=== PATIENT | male | born 1945 | race Caucasian/White ===

== ENCOUNTER 2016-08-19 16:02 | Outpatient (CLI) | payer MEDICARE, OTHER | END 2016-08-19 23:59 | DX: I48.0 Paroxysmal atrial fibrillation (principal); I49.5 Sick sinus syndrome; I10 Essential (primary) hypertension; E78.00 Pure hypercholesterolemia, unspecified; Z95.0 Presence of cardiac pacemaker ==

== ENCOUNTER 2017-01-12 08:22 | Outpatient (CLI) | payer MEDICARE, OTHER ==
[2017-01-12 11:22] LABS: CALCIUM 9.8 mg/dL (8.5-10.3); CREATININE 0.9 mg/dL (0.6-1.2); POTASSIUM 3.9 mmol/L (3.5-5.0)
== END 2017-01-12 08:23 | disposition home or self-care (01) ==
LOC: LAB.F 08:22
PROVIDERS: ATTEND Internal Medicine Cardiovascular Disease
DX: R00.2 Palpitations (principal); Z95.0 Presence of cardiac pacemaker; I10 Essential (primary) hypertension
CPT/HCPCS: 36415; 80048

== ENCOUNTER 2017-02-02 15:29 | Outpatient (CLI) | payer MEDICARE, OTHER ==
--- NOTE | 2017-02-03 09:42 | XRAY Report ---
THREE-VIEW LEFT FOOT: 02/02/2017 CLINICAL INDICATION: Enlargement of 1st metatarsophalangeal joint. FINDINGS: AP, lateral, oblique views of the left foot demonstrate previous joint replacement at the 1st metatarsophalangeal joint. There is no evidence of fracture or evident hardware complication. N o radiopaque foreign body is seen in the soft tissues. IMPRESSION: STATUS POST FIRST METATARSOPHALANGEAL ARTHROPLASTY. NO EVIDENT FRACTURE OR HARDWARE COM PLICATION. JOB #: [id number] EXT JOB #:[id number]
== END 2017-02-02 15:30 | disposition home or self-care (01) ==
LOC: DI 15:29
PROVIDERS: ATTEND Podiatrist
DX: M25.872 Other specified joint disorders, left ankle and foot (principal); Z96.698 Presence of other orthopedic joint implants

== ENCOUNTER 2017-03-22 19:43 | Emergency (ER) | payer MEDICARE, OTHER ==
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
[2017-03-22] MEDS ORDERED: HYDROcod/ACETAM 5/325 MG TABLET PO STA (20:17)
[2017-03-22] MEDS ORDERED: HYDROcod/ACETAM 5/325 MG TABLET ONE (20:22)
[2017-03-22] MEDS ORDERED: oxyCODONE/ACET 5/325 Prepack 4 PO STA (21:06)
[2017-03-22] MEDS ORDERED: oxyCODONE/ACET 5/325 Prepack 4 PO ONE (21:13)
--- NOTE | 2017-03-22 21:15 | CT Preliminary Report ---
Exam: CT Chest W/O IMPRESSION: 1. Minimally displaced fractures of the left third, fourth, fifth and sixth ribs with adjacent epidur al hematomas. 2. No thoracic spine fracture or scapula fracture. 3. No focal consolidation, pleural effusion or pneumothorax. Atelectatic changes are noted in the maty g bases. [facility] SITE ID: [id number]
--- NOTE | 2017-03-22 21:18 | CT Report ---
EXAM: CT CHEST EXAM DATE: 03/22/2017 08:38 PM. CLINICAL HISTORY: Posterior L trauma, scapula, ribs. COMPARISONS: None. TECHNIQUE: Routine helical CT imaging was performed through the chest. IV contrast: None. Reconstruct ions: Coronal and sagittal. In accordance with CT protocol optimization, one or more of the following dose reduction techniques w ere utilized for this exam: automated exposure control, adjustment of mA and/or KV based on patient s ize, or use of iterative reconstructive technique. FINDINGS: Lungs/Pleura: Atelectatic changes in the lung bases posteriorly. No pleural effusion. No focal consol idation. No pneumothorax. Mediastinum: Normal. No adenopathy or masses. The heart and great vessels are normal. Bones: Minimally displaced fractures of the left third, fourth, fifth, sixth ribs posterior laterally . Adjacent epidural hematoma. Visualized Abdomen: Unremarkable. Other: None. IMPRESSION: 1. Minimally displaced fractures of the left third, fourth, fifth and sixth ribs with adjacent epidur al hematomas. 2. No thoracic spine fracture or scapula fracture. 3. No focal consolidation, pleural effusion or pneumothorax. Atelectatic changes are noted in the maty g bases. [facility] Referring Provider Line: [phone] SITE ID: [id number]
[2017-03-22 21:34] VITALS: BP 190/80
== END 2017-03-22 21:40 | disposition home or self-care (01) ==
LOC: ED 19:43
DX: S22.42XA Multiple fractures of ribs, left side, initial encounter for closed fracture (principal); V18.4XXA Pedal cycle driver injured in noncollision transport accident in traffic accident, initial encounter; Y93.55 Activity, bike riding; Y92.488 Other paved roadways as the place of occurrence of the external cause; R03.0 Elevated blood-pressure reading, without diagnosis of hypertension; E78.00 Pure hypercholesterolemia, unspecified; Z79.01 Long term (current) use of anticoagulants; M19.90 Unspecified osteoarthritis, unspecified site; Z95.0 Presence of cardiac pacemaker; Z86.010 Personal history of colon polyps; Z87.11 Personal history of peptic ulcer disease; Z87.891 Personal history of nicotine dependence
CPT/HCPCS: 71250; 99283; 99284; A9270

== ENCOUNTER 2017-06-08 13:30 | Outpatient (CLI) | payer MEDICARE, OTHER | END 2017-06-08 13:31 | disposition home or self-care (01) | LOC: LAB.F 13:30 | PROVIDERS: ATTEND Specialist | DX: I48.91 Unspecified atrial fibrillation (principal) | CPT/HCPCS: 85610 ==

== ENCOUNTER 2017-07-05 14:55 | Outpatient (CLI) | payer MEDICARE, OTHER ==
[2017-07-06 10:44] LABS: CALCIUM 9.9 mg/dL (8.5-10.3); POTASSIUM 4.8 mmol/L (3.5-5.0)
== END 2017-07-05 14:56 | disposition home or self-care (01) ==
LOC: LAB.F 14:55
PROVIDERS: ATTEND Internal Medicine Cardiovascular Disease
DX: I48.0 Paroxysmal atrial fibrillation (principal)
CPT/HCPCS: 36415; 80048

== ENCOUNTER 2017-09-23 15:42 | Outpatient (CLI) | payer MEDICARE, OTHER ==
--- NOTE | 2017-09-24 09:39 | XRAY Report ---
EXAM: LEFT THIRD DIGIT RADIOGRAPHY EXAM DATE: 09/23/2017 04:03 PM. CLINICAL HISTORY: SWOLLEN FINGER. COMPARISON: Previous exam of 06/02/2010. TECHNIQUE: 3 views. FINDINGS: Bones: Normal. No fracture or bone lesion. Joints: Interval progression of mild osteoarthritic changes. No subluxations. Soft Tissues: Normal. No soft tissue swelling. IMPRESSION: Mild osteoarthritis without acute fracture. [facility] Referring Provider Line: [phone] SITE ID: [id number]
== END 2017-09-23 15:43 | disposition home or self-care (01) ==
LOC: DI 15:42
PROVIDERS: ATTEND Specialist
DX: M19.042 Primary osteoarthritis, left hand (principal)
CPT/HCPCS: 73140

== ENCOUNTER 2018-02-14 14:30 | Outpatient (CLI) | payer MEDICARE, OTHER ==
--- NOTE | 2018-02-14 15:09 | XRAY Report ---
Procedure Date: 02/14/2018 Accession Number: [id number] / [id number] Procedure: XR - Foot 3 View RT CPT Code: FULL RESULT: EXAM: Foot 3 View RT DATE: 02/14/2018 2:46 PM CLINICAL HISTORY: METATARSALGIA, RIGHT FOOT COMPARISON: None. TECHNIQUE: 3 views. FINDINGS: Bones: Normal. No fractures or bone lesions. Joints: Normal. No subluxations. Soft Tissues: Normal. No soft tissue swelling. IMPRESSION: Normal foot radiography. [facility]
== END 2018-02-14 14:31 | disposition home or self-care (01) ==
LOC: DI 14:30
PROVIDERS: ATTEND Specialist
DX: M77.41 Metatarsalgia, right foot (principal)

== ENCOUNTER 2018-02-15 09:14 | Outpatient (CLI) | payer MEDICARE, OTHER ==
[2018-02-15 17:44] LABS: BASOPHILS # (AUTO) 0.1 10^3/uL (0.0-0.1); BASOPHILS % (AUTO) 0.8 %; EOSINOPHILS # (AUTO) 0.2 10^3/uL (0.0-0.7); EOSINOPHILS % (AUTO) 2.4 %; HGB - HEMOGLOBIN 14.8 g/dL (14.0-18.0); LYMPHOCYTES % (AUTO) 26.9 %; MEAN CORPUSCULAR HEMOGLOBIN 31.7 pg (27.0-31.0); MEAN CORPUSCULAR HGB CONC 33.4 g/dL (32.0-36.0); MEAN CORPUSCULAR VOLUME 94.8 fL (80.0-94.0); MEAN PLATELET VOLUME 9.6 fL (7.4-11.4); MONOCYTES # (AUTO) 0.6 10^3/uL (0.0-1.0); MONOCYTES % (AUTO) 8.2 %; NEUTROPHILS # (AUTO) 4.6 10^3/uL (1.5-6.6); NEUTROPHILS % (AUTO) 61.7 %; PLT - PLATELET COUNT 249 10^3/uL (130-450); RED BLOOD COUNT 4.68 10^6/uL (4.70-6.10); RED CELL DISTRIBUTION WIDTH 13.5 % (12.0-15.0); WHITE BLOOD COUNT 7.5 x10^3/uL (4.8-10.8)
[2018-02-15 18:24] LABS: ALBUMIN 4.2 g/dL (3.2-5.5); ALBUMIN/GLOBULIN RATIO 1.4 (1.0-2.2); ALKALINE PHOSPHATASE 45 IU/L (42-121); ALT ALANINE AMINOTRANSFERASE 11 IU/L (10-60); AST ASPARTATE AMINOTRANSFERASE 17 IU/L (10-42); BILIRUBIN,TOTAL 0.7 mg/dL (0.2-1.0); BUN - BLOOD UREA NITROGEN 15 mg/dL (6-20); CALCIUM 9.4 mg/dL (8.5-10.3); CARBON DIOXIDE - CO2 24 mmol/L (21-32); CHLORIDE 105 mmol/L (101-111); CHOL/HDL RATIO 6.8 (<5.0); CHOLESTEROL 230 mg/dL; CREATININE 0.8 mg/dL (0.6-1.2); GFR - MDRD 96 (>89); GLUCOSE 112 mg/dL (70-100); HDL CHOLESTEROL 34 mg/dL; LDL CHOLESTEROL,CALCULATED 170 mg/dL; SODIUM 136 mmol/L (135-145); TOTAL PROTEIN 7.2 g/dL (6.7-8.2); VLDL CHOLESTEROL 26 mg/dL
== END 2018-02-15 09:15 | disposition home or self-care (01) ==
LOC: LAB.F 09:14
PROVIDERS: ATTEND Specialist
DX: E78.00 Pure hypercholesterolemia, unspecified (principal); I48.91 Unspecified atrial fibrillation
CPT/HCPCS: 36415; 80053; 80061; 83721; 84153; 85025

== ENCOUNTER 2018-03-21 20:51 | Outpatient (CLI) | payer MEDICARE, OTHER ==
--- NOTE | 2018-03-21 22:13 | Ultrasound Report ---
Reason: R LEG PAIN Procedure Date: 03/21/2018 Accession Number: [id number] / [id number] Procedure: US - Duplex Ext Veins Right CPT Code: FULL RESULT: EXAM: RIGHT LOWER EXTREMITY VENOUS ULTRASOUND EXAM DATE: 03/21/2018 09:28 PM. CLINICAL HISTORY: Right leg pain. COMPARISON: None. TECHNIQUE: Real-time sonographic vascular imaging was performed by the steward/stewardess wine through the lower extremity utilizing both color-flow and Doppler spectral analysis. Multiple community engagement representative static images were saved for review. FINDINGS: Common Femoral Vein (CFV): Normal. CFV-GSV Junction: Normal. Profunda Femoral Vein (PFV): Normal. Femoral Vein (FV) Prox: Normal. Femoral Vein (FV) Mid: Normal. Femoral Vein (FV) Dist: Normal. Popliteal Vein: Normal. Posterior Tibial Veins: Normal. Peroneal Veins: Normal. Other: None. IMPRESSION: No evidence for deep venous thrombosis. [facility]
== END 2018-03-21 20:52 | disposition home or self-care (01) ==
LOC: DI 20:51
PROVIDERS: ATTEND Specialist
DX: M79.604 Pain in right leg (principal)

== ENCOUNTER 2018-07-03 10:54 | Outpatient (CLI) | payer MEDICARE, OTHER | END 2018-07-03 10:55 | disposition home or self-care (01) | LOC: LAB.F 10:54 | PROVIDERS: ATTEND Specialist | DX: I48.91 Unspecified atrial fibrillation (principal); M77.41 Metatarsalgia, right foot; E78.00 Pure hypercholesterolemia, unspecified | CPT/HCPCS: 36415; 80053; 80061; 83036; 83721; 84153; 85025 ==

== ENCOUNTER 2018-07-05 08:55 | Outpatient (CLI) | payer MEDICARE, OTHER ==
[2018-07-05 18:24] LABS: BASOPHILS # (AUTO) 0.1 10^3/uL (0.0-0.1); BASOPHILS % (AUTO) 0.8 %; EOSINOPHILS # (AUTO) 0.2 10^3/uL (0.0-0.7); EOSINOPHILS % (AUTO) 2.5 %; HGB - HEMOGLOBIN 15.3 g/dL (14.0-18.0); MEAN CORPUSCULAR HEMOGLOBIN 31.3 pg (27.0-31.0); MEAN CORPUSCULAR VOLUME 94.9 fL (80.0-94.0); MEAN PLATELET VOLUME 9.6 fL (7.4-11.4); MONOCYTES # (AUTO) 0.7 10^3/uL (0.0-1.0); MONOCYTES % (AUTO) 9.4 %; NEUTROPHILS # (AUTO) 4.3 10^3/uL (1.5-6.6); NEUTROPHILS % (AUTO) 59.3 %; PLT - PLATELET COUNT 252 10^3/uL (130-450); RED BLOOD COUNT 4.89 10^6/uL (4.70-6.10); RED CELL DISTRIBUTION WIDTH 13.6 % (12.0-15.0); WHITE BLOOD COUNT 7.3 x10^3/uL (4.8-10.8)
[2018-07-05 18:38] LABS: HEMOGLOBIN A1C 0.74 g/dL; HEMOGLOBIN A1C % 6.1 % (4.6-6.2)
[2018-07-05 18:48] LABS: ALBUMIN 4.5 g/dL (3.2-5.5); ALBUMIN/GLOBULIN RATIO 1.6 (1.0-2.2); ALKALINE PHOSPHATASE 49 IU/L (42-121); ALT ALANINE AMINOTRANSFERASE 13 IU/L (10-60); AST ASPARTATE AMINOTRANSFERASE 19 IU/L (10-42); BILIRUBIN,TOTAL 0.5 mg/dL (0.2-1.0); BUN - BLOOD UREA NITROGEN 13 mg/dL (6-20); CALCIUM 9.4 mg/dL (8.5-10.3); CARBON DIOXIDE - CO2 28 mmol/L (21-32); CHLORIDE 104 mmol/L (101-111); CHOL/HDL RATIO 6.2 (<5.0); CHOLESTEROL 235 mg/dL; CREATININE 0.8 mg/dL (0.6-1.2); GFR - MDRD 96 (>89); GLUCOSE 107 mg/dL (70-100); HDL CHOLESTEROL 38 mg/dL; LDL CHOLESTEROL,CALCULATED 163 mg/dL; LDL/HDL RATIO 4.3 (<3.6); SODIUM 137 mmol/L (135-145); TOTAL PROTEIN 7.4 g/dL (6.7-8.2); VLDL CHOLESTEROL 34 mg/dL
== END 2018-07-05 08:56 | disposition home or self-care (01) ==
LOC: LAB.F 08:55
PROVIDERS: ATTEND Specialist
DX: I48.91 Unspecified atrial fibrillation (principal); E78.00 Pure hypercholesterolemia, unspecified; R73.03 Prediabetes; Z12.5 Encounter for screening for malignant neoplasm of prostate; M54.5 Low back pain
CPT/HCPCS: 36415; 80053; 80061; 83036; 85025; G0103; 83721; 84153

== ENCOUNTER 2018-12-08 09:16 | Outpatient (CLI) | payer MEDICARE, OTHER ==
[2018-12-08 17:59] LABS: ALBUMIN 4.3 g/dL (3.2-5.5); ALBUMIN/GLOBULIN RATIO 1.5 (1.0-2.2); ALKALINE PHOSPHATASE 46 IU/L (42-121); ALT ALANINE AMINOTRANSFERASE 12 IU/L (10-60); AST ASPARTATE AMINOTRANSFERASE 21 IU/L (10-42); BILIRUBIN,TOTAL 0.6 mg/dL (0.2-1.0); BUN - BLOOD UREA NITROGEN 11 mg/dL (6-20); CALCIUM 9.5 mg/dL (8.5-10.3); CARBON DIOXIDE - CO2 26 mmol/L (21-32); CHLORIDE 102 mmol/L (101-111); CHOL/HDL RATIO 5.8 (<5.0); CHOLESTEROL 233 mg/dL; CREATININE 0.7 mg/dL (0.6-1.2); GFR - MDRD 111 (>89); GLUCOSE 116 mg/dL (70-100); HDL CHOLESTEROL 40 mg/dL; LDL CHOLESTEROL,CALCULATED 166 mg/dL; LDL/HDL RATIO 4.2 (<3.6); SODIUM 136 mmol/L (135-145); TOTAL PROTEIN 7.1 g/dL (6.7-8.2); VLDL CHOLESTEROL 27 mg/dL
== END 2018-12-08 09:17 | disposition home or self-care (01) ==
LOC: LAB.F 09:16
PROVIDERS: ATTEND Internal Medicine Cardiovascular Disease
DX: E78.5 Hyperlipidemia, unspecified (principal)
CPT/HCPCS: 36415; 80053; 80061; 83721

== ENCOUNTER 2019-05-16 10:03 | Outpatient (CLI) | payer MEDICARE, OTHER ==
[2019-05-16 17:23] LABS: BASOPHILS # (AUTO) 0.1 10^3/uL (0.0-0.1); BASOPHILS % (AUTO) 0.9 %; EOSINOPHILS # (AUTO) 0.2 10^3/uL (0.0-0.7); EOSINOPHILS % (AUTO) 2.1 %; HGB - HEMOGLOBIN 14.7 g/dL (14.0-18.0); LYMPHOCYTES % (AUTO) 24.7 %; MEAN CORPUSCULAR HEMOGLOBIN 30.1 pg (27.0-31.0); MEAN CORPUSCULAR VOLUME 94.1 fL (80.0-94.0); MEAN PLATELET VOLUME 11.7 fL (7.4-11.4); MONOCYTES # (AUTO) 0.6 10^3/uL (0.0-1.0); MONOCYTES % (AUTO) 7.5 %; NEUTROPHILS # (AUTO) 5.2 10^3/uL (1.5-6.6); NEUTROPHILS % (AUTO) 64.4 %; PLT - PLATELET COUNT 282 10^3/uL (130-450); RED BLOOD COUNT 4.88 10^6/uL (4.70-6.10); RED CELL DISTRIBUTION WIDTH 13.2 % (12.0-15.0)
[2019-05-16 17:41] LABS: ALBUMIN 4.2 g/dL (3.2-5.5); ALBUMIN/GLOBULIN RATIO 1.3 (1.0-2.2); ALKALINE PHOSPHATASE 48 IU/L (42-121); ALT ALANINE AMINOTRANSFERASE 12 IU/L (10-60); AST ASPARTATE AMINOTRANSFERASE 19 IU/L (10-42); BILIRUBIN,TOTAL 0.6 mg/dL (0.2-1.0); BUN - BLOOD UREA NITROGEN 16 mg/dL (6-20); CALCIUM 9.6 mg/dL (8.5-10.3); CARBON DIOXIDE - CO2 25 mmol/L (21-32); CHLORIDE 104 mmol/L (101-111); CHOLESTEROL 281 mg/dL; CREATININE 0.7 mg/dL (0.6-1.2); GFR - MDRD 111 (>89); GLUCOSE 128 mg/dL (70-100); HDL CHOLESTEROL 40 mg/dL; LDL CHOLESTEROL,CALCULATED 208 mg/dL; LDL/HDL RATIO 5.2 (<3.6); PSA FREE 0.374 ng/mL (0.16-2.81); SODIUM 136 mmol/L (135-145); TOTAL PROTEIN 7.5 g/dL (6.7-8.2); VLDL CHOLESTEROL 33 mg/dL
[2019-05-16 17:42] LABS: PSA TOTAL 1.896 ng/mL (0.000-2.000)
== END 2019-05-16 10:04 | disposition home or self-care (01) ==
LOC: LAB.S 10:03
PROVIDERS: ATTEND Nurse Practitioner
DX: E78.00 Pure hypercholesterolemia, unspecified (principal); Z79.01 Long term (current) use of anticoagulants; I48.0 Paroxysmal atrial fibrillation; I10 Essential (primary) hypertension; N40.0 Benign prostatic hyperplasia without lower urinary tract symptoms
CPT/HCPCS: 36415; 80053; 80061; 83721; 84153; 84154; 84443; 85025

== ENCOUNTER 2020-01-04 12:44 | Outpatient (CLI) | payer MEDICARE, OTHER ==
--- NOTE | 2020-01-07 12:40 | Ultrasound Report ---
LIMITED ULTRASOUND OF LEFT BREAST: 01/04/2020 CLINICAL: Focal left breast pain. Comparison is made to exam dated: 01/04/2020 mammogram - [facility]. Color flow and real-time ultrasound of the left breast were performed. Albert scale images of the real -time examination were reviewed. There is a benign 3 cm x 1.4 cm x 1.2 cm irregular area of fibroglandular tissue in the left breast c entral to the nipple in the retroareolar region. This irregular area of fibroglandular tissue is hyp oechoic. This correlates as palpated and with mammography findings. Color flow imaging demonstrates that there is an adjacent vascularity. No abnormality in the contralateral retroareolar right breast . IMPRESSION: BENIGN There is no sonographic evidence of malignancy. Left breast asymmetric gynecomastia is benign. Recommend clinical follow-up. Exam findings conveyed to the patient. This exam was interpreted at Station ID: [id number]. Electronically Signed By: Raj Arboleda M.D. slc/:01/04/2020 15:26:40 Ultrasound BI-RADS: 2 Benign BI-RADS CATEGORY: (2) - 2 Unspecified - other recall n/a LATERALITY: (B)
--- NOTE | 2020-01-07 12:40 | Mammography Report ---
MALE BILATERAL DIGITAL DIAGNOSTIC MAMMOGRAM 3D/2D: 01/04/2020 CLINICAL: Diffuse left breast pain. Baseline exam. No prior exams were available for comparison. Left pacemaker somewhat limits left MLO projection exposure. There is an irregular area of fibroglandular tissue with an indistinct margin in the left breast cent ral to the nipple in the retroareolar region. This correlates as palpated. No other significant masses, calcifications, or other findings are seen in either breast. IMPRESSION: INCOMPLETE: NEEDS ADDITIONAL IMAGING EVALUATION The irregular area of fibroglandular tissue in the retroareolar left breast corresponds to the palpab le abnormality and most likely represents gynecomastia. A targeted ultrasound is recommended and will immediately follow. This exam was interpreted at Station ID: [id number]. NOTE: For mammograms, a report in lay terms will be sent to the patient. Approximately 15% of breast malignancies will not be visualized mammographically. In the management of a palpable breast mass, a negative mammogram must not discourage biopsy of a clinically suspicious lesion. Electronically Signed By: Raj Arboleda M.D. slc/:01/04/2020 14:24:36 ACR BI-RADS Category 0: Incomplete 3340F PARENCHYMAL PATTERN: (F) - The breast(s) demonstrate(s) diffuse fatty replacement. BI-RADS CATEGORY: (0) - 0 Ultrasound [id number] Immediate follow-up LATERALITY: (B)
== END 2020-01-04 12:45 | disposition home or self-care (01) ==
LOC: DI 12:44
PROVIDERS: ATTEND Nurse Practitioner
DX: N62 Hypertrophy of breast (principal); Z95.0 Presence of cardiac pacemaker
CPT/HCPCS: 76642; 77066

== ENCOUNTER 2020-01-10 14:41 | Outpatient (CLI) | payer MEDICARE, OTHER | END 2020-01-10 14:42 | disposition short-term general hospital (02) | LOC: EMS 14:41 | PROVIDERS: ATTEND Surgery | DX: R55 Syncope and collapse (principal); R10.32 Left lower quadrant pain; R42 Dizziness and giddiness | CPT/HCPCS: A0425; A0427 ==

== ENCOUNTER 2020-01-21 08:00 | Outpatient (CLI) | payer MEDICARE, OTHER ==
[2020-01-21 17:53] LABS: BASOPHILS # (AUTO) 0.1 10^3/uL (0.0-0.1); BASOPHILS % (AUTO) 0.6 %; EOSINOPHILS # (AUTO) 0.1 10^3/uL (0.0-0.7); EOSINOPHILS % (AUTO) 0.5 %; HGB - HEMOGLOBIN 9.8 g/dL (14.0-18.0); LYMPHOCYTES # (AUTO) 2.5 10^3/uL (1.5-3.5); LYMPHOCYTES % (AUTO) 12.4 %; MEAN CORPUSCULAR HEMOGLOBIN 29.5 pg (27.0-31.0); MEAN CORPUSCULAR HGB CONC 31.1 g/dL (32.0-36.0); MEAN CORPUSCULAR VOLUME 94.9 fL (80.0-94.0); MEAN PLATELET VOLUME 11.6 fL (7.4-11.4); MONOCYTES # (AUTO) 1.8 10^3/uL (0.0-1.0); NEUTROPHILS # (AUTO) 15.2 10^3/uL (1.5-6.6); NEUTROPHILS % (AUTO) 76.4 %; PLT - PLATELET COUNT 787 10^3/uL (130-450); RED BLOOD COUNT 3.32 10^6/uL (4.70-6.10); RED CELL DISTRIBUTION WIDTH 14.2 % (12.0-15.0); WHITE BLOOD COUNT 19.9 x10^3/uL (4.8-10.8)
[2020-01-21 18:16] LABS: ALBUMIN 3.6 g/dL (3.2-5.5); ALBUMIN/GLOBULIN RATIO 1.1 (1.0-2.2); BILIRUBIN,TOTAL 0.5 mg/dL (0.2-1.0); CALCIUM 9.2 mg/dL (8.5-10.3); CREATININE 0.8 mg/dL (0.6-1.2); TOTAL PROTEIN 6.9 g/dL (6.7-8.2)
[2020-01-21 19:21] LABS: DIFFERENTIAL COMMENT MANUAL=AUTO DIFF; PLATELET ESTIMATE, MANUAL INCREASED (>450,000) (NORMAL); PLATELET MORPHOLOGY NORMAL APPEARANCE (NORMAL)
== END 2020-01-21 23:59 | disposition home or self-care (01) ==
LOC: LAB.WCP 08:00
PROVIDERS: ATTEND Nurse Practitioner
DX: Z90.81 Acquired absence of spleen (principal); Z79.01 Long term (current) use of anticoagulants; I10 Essential (primary) hypertension
CPT/HCPCS: 36415; 80053; 85025

== ENCOUNTER 2020-02-12 14:14 | Emergency (ER) | payer MEDICARE, OTHER ==
--- NOTE | 2020-02-12 15:49 | XRAY Report ---
PROCEDURE: Chest 1 View X-Ray INDICATIONS: Chest Pain TECHNIQUE: One view of the chest was acquired. COMPARISON: CT chest 03/22/2017. 2 view chest 05/06/2014 FINDINGS: Surgical changes and devices: Dual-lead left chest wall cardiac pacer. Lungs and pleura: Small left-sided pleural effusion. Consolidation left lung base. Mediastinum: Mediastinal contours appear normal. Heart size is normal. Bones and chest wall: No suspicious bony lesions. Overlying soft tissues appear unremarkable. IMPRESSION: Left lower lobe pneumonia with small parapneumonic effusion. Recommend follow-up chest x-ray 30 days to ensure resolution of the finding and to exclude underlying mass. Reviewed by: Shyanne Lazo MD, PhD on 02/12/2020 3:47 PM PDT Approved by: Shyanne Lazo MD, PhD on 02/12/2020 3:47 PM PDT Station ID: [id number]
[2020-02-12 15:55] LABS: BASOPHILS # (AUTO) 0.1 10^3/uL (0.0-0.1); BASOPHILS % (AUTO) 0.5 %; EOSINOPHILS % (AUTO) 0.2 %; LYMPHOCYTES # (AUTO) 1.9 10^3/uL (1.5-3.5); LYMPHOCYTES % (AUTO) 12.9 %; MEAN CORPUSCULAR HEMOGLOBIN 29.1 pg (27.0-31.0); MEAN CORPUSCULAR HGB CONC 31.8 g/dL (32.0-36.0); MEAN CORPUSCULAR VOLUME 91.5 fL (80.0-94.0); MEAN PLATELET VOLUME 9.6 fL (7.4-11.4); MONOCYTES # (AUTO) 1.2 10^3/uL (0.0-1.0); MONOCYTES % (AUTO) 8.3 %; NEUTROPHILS # (AUTO) 11.6 10^3/uL (1.5-6.6); NEUTROPHILS % (AUTO) 77.7 %; PLT - PLATELET COUNT 473 10^3/uL (130-450); RED BLOOD COUNT 4.47 10^6/uL (4.70-6.10); RED CELL DISTRIBUTION WIDTH 14.8 % (12.0-15.0); WHITE BLOOD COUNT 14.9 x10^3/uL (4.8-10.8)
[2020-02-12 16:09] LABS: ALBUMIN 4.1 g/dL (3.2-5.5); BILIRUBIN,TOTAL 0.5 mg/dL (0.2-1.0); CREATININE 0.8 mg/dL (0.6-1.2); TOTAL PROTEIN 8.4 g/dL (6.7-8.2)
[2020-02-12] MEDS ORDERED: levoFLOXacin 750 MG/150 ML 750 MG/150 ML BAG IV STA (17:14)
--- NOTE | 2020-02-12 17:15 | ED Physician Documentation ---
PD HPI CHEST PAIN - Stated complaint Stated Complaint: CHEST PAIN - Chief complaint Chief Complaint: Cardiac - History obtained from History obtained from: Patient - History of Present Illness Timing - onset: Today Timing - onset during: Rest Timing - duration: Hours Timing - details: Abrupt onset, Still present Quality: Pressure, Tightness, Sharp Location: Substernal, Left chest Radiation: Back Improved by: Rest, Other (sitting upright) Worsened by: Exertion, Inspiration, Movement, Palpation Associated symptoms: Shortness of air. 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 He subsequently developed intra-abdominal abscess and was readmitted on 01/23/2020. He was eventually discharged on 01/30/2020 at that time he had a drain in place and the drain was removed today. The patient drove himself to [place] in [place] had the drain removed and drove himself back home and he was at home sitting in his couch when he began to get pain in his left chest. He is come to the emergency department now for evaluation.He does indicate that he has had a slight cough he has not had a fever. He has some pain in that side especially if he takes a deep breath. This has been present for some time. Review of Systems Constitutional: reports: Chills. denies: Fever Eyes: denies: Decreased vision Ears: denies: Ear pain Nose: denies: Rhinorrhea / runny nose, Congestion Throat: denies: Sore throat Cardiac: reports: Chest pain / pressure. denies: Palpitations, Pedal edema, Calf pain Respiratory: reports: Dyspnea, Cough. denies: Wheezing GI: reports: Abdominal Pain. denies: Nausea, Vomiting, Constipation, Diarrhea : denies: Dysuria, Frequency Skin: denies: Rash Musculoskeletal: denies: Neck pain, Back pain, Extremity pain PD PAST MEDICAL HISTORY - Past Medical History Past Medical History: Yes Cardiovascular: High cholesterol, Other Respiratory: None Endocrine/Autoimmune: None GI: Ulcers, Colon polyps : Nocturia HEENT: Other Psych: None Musculoskeletal: Osteoarthritis Derm: None - Past Surgical History Past Surgical History: Yes General: Colonoscopy, EGD Ortho: Arthroscopic surgery Cardiovascular: Pacemaker HEENT: Tonsil/Adenoidectomy - Present Medications Home Medications: Ambulatory Orders Medication Instructions Recorded Confirmed Cholecalciferol (Vitamin D3) 50,000 unit PO ONCE 05/21/15 05/21/15 [Vitamin D] Oxycodone HCl/Acetaminophen 1 - 2 tab PO Q4H PRN #30 tablet 03/22/17 [Percocet 5-325 mg Tablet] Levofloxacin [Levaquin] 750 mg PO DAILY #10 tablet 02/12/20 - Allergies Allergies/Adverse Reactions: Allergies Allergy/AdvReac Type Severity Reaction Status Date / Time Hklrglv-Ncc-Lfb Reductase Allergy Hives Verified 02/12/20 14:22 Inhibitor Sulfa (Sulfonamide AdvReac Severe Agitation Verified 02/12/20 14:22 Antibiotics) - Social History Does the pt smoke?: No Smoking Status: Never smoker Does the pt drink ETOH?: Yes Does the pt have substance abuse?: Yes PD ED PE NORMAL - Vitals Vital signs reviewed: Yes (hypertensive ) - General General: Alert and oriented X 3, No acute distress, Well developed/nourished - HEENT HEENT: Atraumatic, PERRL, EOMI - Neck Neck: Supple, no meningeal sign, No bony TTP - Cardiac Cardiac: RRR, No murmur - Respiratory Respiratory: No respiratory distress, Other (rhonchi in the left base diminished sounds. ) - Abdomen Abdomen: Soft, Other (midline surgical scar appears to be healing well without signs of inflamation ) - Back Back: No CVA TTP, No spinal TTP - Derm Derm: Normal color, Warm and dry, No rash - Extremities Extremities: No deformity, No edema - Neuro Neuro: Alert and oriented X 3, electrician chief 2-12 intact, No motor deficit, No sensory deficit, Normal speech Eye Opening: Spontaneous Motor: Obeys Commands Verbal: Oriented GCS Score: 15 - Psych Psych: Normal mood, Normal affect Results - Vitals Vitals: Vital Signs - 24 hr 02/12/20 02/12/20 02/12/20 14:22 15:44 16:44 Temperature 36.8 C Heart Rate 86 85 Respiratory 16 18 18 Rate Blood Pressure 159/78 H 158/72 H 161/90 H O2 Saturation 97 96 97 Oxygen O2 Source Room air - Labs Labs: Laboratory Tests 02/12/20 02/12/20 02/12/20 15:48 15:48 15:48 WBC 14.9 H RBC 4.47 L Hgb 13.0 L Hct 40.9 L MCV 91.5 MCH 29.1 MCHC 31.8 L RDW 14.8 Plt Count 473 H MPV 9.6 Neut # (Auto) 11.6 H Lymph # (Auto) 1.9 [place] # (Auto) 1.2 H Eos # (Auto) 0.0 Baso # (Auto) 0.1 Absolute Nucleated RBC 0.00 Nucleated RBC % 0.0 Sodium 135 Potassium 3.8 Chloride 100 L Carbon Dioxide 22 Anion Gap 13.0 BUN 10 Creatinine 0.8 Estimated GFR (MDRD) 95 Glucose 142 H Calcium 10.0 Total Bilirubin 0.5 AST 16 ALT 11 Alkaline Phosphatase 54 Troponin I High Sens 9.0 Total Protein 8.4 H Albumin 4.1 Globulin 4.3 H Albumin/Globulin Ratio 1.0 Lipase 45 - Rads (name of study) chest Radiology: Prelim report reviewed (Impression: Left lower lobe pneumonia with small parapneumonic effusion. Recommend follow-up chest x-ray 30 days to ensure resolution of the finding and to exclude underlying mass.), EMP read indepedently, See rad report PD MEDICAL DECISION MAKING - ED course Complexity details: reviewed results, re-evaluated patient, considered differential, d/w patient ED course: 74-year-old male with a recent admission for trauma has had a postoperative intra-abdominal abscess he has had his IR drain removed today and this afternoon on evaluation of his chest x-ray it appears he has an infiltrate. The location does not appear surprising given that he has been splinting on that side for some time. He has not been on antibiotic for over a week. Here in the emergency department he is begun on Levaquin and his pain is improved and he would like to go home. He has normal oxygen saturation he is afebrile and appears well enough to be treated as outpatient. Departure - Departure Disposition: Home, Self Care Clinical Impression: Pneumonia Qualifiers: Pneumonia type: due to unspecified organism Laterality: left Lung location: lower lobe of lung Qualified Code(s): J18.9 - Pneumonia, unspecified organism Condition: Stable Instructions: ED Pneumonia Adult Follow-Up: Sherine Christianson ARNP, A R SPECIALIST-C [Primary Care Provider] - Prescriptions: Levofloxacin [Levaquin] 750 mg PO DAILY #10 tablet
[2020-02-12 18:54] VITALS: BP 123/78
== END 2020-02-12 19:05 | disposition home or self-care (01) ==
LOC: ED 14:14
DX: J18.9 Pneumonia, unspecified organism (principal); Z90.81 Acquired absence of spleen
CPT/HCPCS: 36415; 71045; 80053; 83690; 84484; 85025; 93005; 96374; 99284

== ENCOUNTER 2020-06-13 09:20 | Outpatient (CLI) | payer MEDICARE, OTHER ==
--- NOTE | 2020-06-13 17:23 | XRAY Report ---
PROCEDURE: Chest 2 View X-Ray INDICATIONS: FATIGUE TECHNIQUE: 2 view(s) of the chest. COMPARISON: None. FINDINGS: Surgical changes and devices: A left chest wall pacer is seen with intact leads.. Lungs and pleura: No pleural effusions or pneumothorax. Lungs are clear. Blunting of the left cost ophrenic angle is likely scarring. Mediastinum: Mediastinal contours are normal. Heart size is normal. Bones and chest wall: No suspicious bony abnormalities. Soft tissues appear unremarkable. IMPRESSION: No acute cardiopulmonary abnormality. Reviewed by: Brennen Medrano on 06/13/2020 5:21 PM [facility] Approved by: Brennen Medrano on 06/13/2020 5:21 PM [facility] Station ID: [id number]
== END 2020-06-13 09:21 | disposition home or self-care (01) ==
LOC: DI.S 09:20
PROVIDERS: ATTEND Nurse Practitioner Family
DX: R53.83 Other fatigue (principal)
CPT/HCPCS: 71046

== ENCOUNTER 2020-07-17 12:38 | Outpatient (CLI) | payer MEDICARE, OTHER ==
--- NOTE | 2020-07-17 14:33 | CT Report ---
PROCEDURE: CHEST WO INDICATIONS: SOLITARY NODULE OF LUNG TECHNIQUE: Noncontrast 5 mm thick sections acquired from the pulmonary apices to the posterior costophrenic angl es. 7 mm thick coronal and sagittal MIP reformats were then acquired. For radiation dose reduction, the following was used: automated exposure control, adjustment of mA and/or kV according to patient size. COMPARISON: Noncontrast CT of the chest dated 03/22/2017. FINDINGS: Image quality: Excellent. Lungs and pleura: A lobulated nodule is redemonstrated within the right upper lobe which measures 1.2 x 1.0 cm in the axial plane and is unchanged when compared with the CT dated 03/22/2017 (series 4/ksenia ge 126). Mild atelectasis is present at the anterior left lung base. No acute airspace opacities. No pleural effusion or pneumothorax. Mediastinum: Heart size is normal. There is a trace low-density pericardial effusion. There are sca ttered coronary artery atheromatous calcifications. No mediastinal adenopathy by size criteria. Thor acic aorta and central pulmonary arteries are normal in size. Moderate atheromatous calcifications ar e present at the thoracic aortic arch. Esophagus is normal in caliber. No hiatal hernia. Bones and chest wall: No suspicious bony lesions. No vertebral body compression fractures. No axil isaiah or supraclavicular adenopathy by size criteria. The thyroid is normal in size. Abdomen: Visualized upper abdominal solid organs and bowel loops appear normal in the absence of con trast. IMPRESSION: 1. Stable right upper lobe pulmonary nodule when compared with the study from 2017. No new pulmonary nodules or acute airspace opacities. 2. Aortic and coronary artery atherosclerosis. Reviewed by: Nathaly Hanna MD on 07/17/2020 2:32 PM PST Approved by: Nathaly Hanna MD on 07/17/2020 2:32 PM PST Station ID: [id number]
== END 2020-07-17 12:39 | disposition home or self-care (01) ==
LOC: DI 12:38
PROVIDERS: ATTEND Nurse Practitioner Family
DX: R91.1 Solitary pulmonary nodule (principal)
CPT/HCPCS: 71250

== ENCOUNTER 2020-12-24 15:00 | Outpatient (CLI) | payer MEDICARE, OTHER ==
--- NOTE | 2020-12-24 17:17 | XRAY Report ---
PROCEDURE: Wrist 4 View RT INDICATIONS: RIGHT WRIST PAIN/SPRAIN OF RADIOCARPAL JOINT TECHNIQUE: 4 views of the wrist were acquired. COMPARISON: None FINDINGS: Bones: No dislocations. No suspicious bony lesions. There is a fracture diagonally across the bas e of the radius laterally, extending into the articular surface, and mildly displaced. On the lateral view there is a additional apparent bone fragment dorsally superimposed on the expected position of the interspace between the distal and proximal carpal rows. Scaphoid view: No trauma to the scaphoid is found. Soft tissues: No suspicious soft tissue calcifications. IMPRESSION: Intra-articular fracture, mildly displaced, at the distal radius laterally, essentially at the base o f the radial styloid process. An additional fracture is present but the exact site is uncertain. It i s indicated by presence of an avulsion fragment at the dorsal carpal region at approximately the inte rspace between the distal and proximal carpal rows. CT scanning or MR scanning may be warranted for m ore accurate assessment. An avulsion fragment of this type can indicate additional significant hidden injury along the carpal bones dorsally. Reviewed by: Kyle Cox MD on 12/24/2020 4:16 PM [facility] Approved by: Kyle Cox MD on 12/24/2020 4:16 PM [facility] Station ID: [id number]
== END 2020-12-24 23:59 | disposition home or self-care (01) ==
LOC: DI.S 15:00
PROVIDERS: ATTEND Emergency Medicine
DX: S52.571A Other intraarticular fracture of lower end of right radius, initial encounter for closed fracture (principal); S62.101A Fracture of unspecified carpal bone, right wrist, initial encounter for closed fracture

== ENCOUNTER 2021-01-07 11:27 | Outpatient (CLI) | payer MEDICARE, OTHER ==
[2021-01-07 20:00] LABS: CALCIUM 9.8 mg/dL (8.5-10.3); CREATININE 0.8 mg/dL (0.6-1.2); MAGNESIUM 2.1 mg/dL (1.7-2.8); POTASSIUM 4.5 mmol/L (3.5-5.0)
== END 2021-01-07 11:28 | disposition home or self-care (01) ==
LOC: LAB.S 11:27
PROVIDERS: ATTEND Internal Medicine Cardiovascular Disease
DX: I47.2 Ventricular tachycardia (principal); I10 Essential (primary) hypertension
CPT/HCPCS: 36415; 80048; 83735; 84443

== ENCOUNTER 2021-01-14 12:13 | Outpatient (CLI) | payer MEDICARE, OTHER ==
[2021-01-14 15:59] LABS: CALCIUM 9.6 mg/dL (8.5-10.3); CREATININE 0.8 mg/dL (0.6-1.2); MAGNESIUM 2.1 mg/dL (1.7-2.8); POTASSIUM 4.1 mmol/L (3.5-5.0)
== END 2021-01-14 12:14 | disposition home or self-care (01) ==
LOC: LAB.S 12:13
PROVIDERS: ATTEND Internal Medicine Cardiovascular Disease
DX: I47.2 Ventricular tachycardia (principal); I10 Essential (primary) hypertension
CPT/HCPCS: 36415; 80048; 83735; 84443

== ENCOUNTER → 2021-02-10 | Outpatient (CLI) | payer MEDICARE, OTHER ==
--- NOTE | 2021-02-10 17:23 | XRAY Report ---
PROCEDURE: Wrist 3 View RT INDICATIONS: INTRAARTICULAR FX OF DISTAL R RADIUS TECHNIQUE: 3 views of the wrist were acquired. COMPARISON: 12/24/2020 FINDINGS: Bones: Intra-articular fracture of the distal radius is less conspicuous compared to prior examinatio n compatible with progression of healing. Displaced triquetral fracture of indeterminate age is stabl e compared to prior exam. Soft tissues: No suspicious soft tissue calcifications. IMPRESSION: 1. Healing distal radius fracture. 2. Triquetral fracture of indeterminate age stable compared to prior exam. Reviewed by: Shyanne Lazo MD, PhD on 02/10/2021 5:21 PM PDT Approved by: Shyanne Lazo MD, PhD on 02/10/2021 5:21 PM PDT Station ID: [id number]
== END ==
LOC: DI.N 08:17
PROVIDERS: ATTEND Orthopaedic Surgery
DX: S52.571A Other intraarticular fracture of lower end of right radius, initial encounter for closed fracture (principal)

== ENCOUNTER 2021-02-26 09:19 | Outpatient (CLI) | payer MEDICARE, OTHER ==
[2021-02-26 15:23] LABS: CHOL/HDL RATIO 3.2 (<5.0); CHOLESTEROL 95 mg/dL; HDL CHOLESTEROL 30 mg/dL; LDL CHOLESTEROL,CALCULATED 36 mg/dL; LDL/HDL RATIO 1.2 (<3.6); TRIGLYCERIDES 144 mg/dL; VLDL CHOLESTEROL 29 mg/dL
== END 2021-02-26 09:20 | disposition home or self-care (01) ==
LOC: LAB.S 09:19
PROVIDERS: ATTEND Internal Medicine Cardiovascular Disease
DX: E78.5 Hyperlipidemia, unspecified (principal)
CPT/HCPCS: 36415; 80061; 83721

== ENCOUNTER 2021-03-12 08:00 | Outpatient (CLI) | payer MEDICARE, OTHER ==
--- NOTE | 2021-03-12 17:21 | XRAY Report ---
PROCEDURE: Shoulder 3 View LT INDICATIONS: PAIN IN LEFT SHOULDER TECHNIQUE: 3 views of the shoulder were acquired. COMPARISON: None. FINDINGS: Bones: No fractures or dislocations. No suspicious bony lesions. Visualized ribs appear intact. M oderate acromioclavicular and glenohumeral joint space narrowing with articular osteophyte formation. Soft tissues: Calcification involving the rotator cuff. Left cardiac pacer present incompletely visua lized. IMPRESSION: Moderate acromioclavicular and glenohumeral joint degeneration. Calcific tendinitis of the rotator cuff. Reviewed by: FRANCISCO Craft on 03/12/2021 5:20 PM PDT Approved by: Reynaldo Aquino MD on 03/12/2021 5:20 PM PDT Station ID: [id number]
== END 2021-03-12 23:59 | disposition home or self-care (01) ==
LOC: DI.S 08:00
PROVIDERS: ATTEND Physician Assistant Medical
DX: M25.512 Pain in left shoulder (principal); M19.012 Primary osteoarthritis, left shoulder; M75.32 Calcific tendinitis of left shoulder

== ENCOUNTER 2021-06-30 09:33 | Outpatient (CLI) | payer MEDICARE, OTHER ==
[2021-06-30 15:15] LABS: BASOPHILS # (AUTO) 0.1 10^3/uL (0.0-0.1); EOSINOPHILS # (AUTO) 0.2 10^3/uL (0.0-0.7); HCT - HEMATOCRIT 46.3 % (42.0-52.0); HGB - HEMOGLOBIN 15.2 g/dL (14.0-18.0); LYMPHOCYTES # (AUTO) 3.4 10^3/uL (1.5-3.5); LYMPHOCYTES % (AUTO) 36.1 %; MEAN CORPUSCULAR HEMOGLOBIN 30.9 pg (27.0-31.0); MEAN CORPUSCULAR HGB CONC 32.8 g/dL (32.0-36.0); MEAN CORPUSCULAR VOLUME 94.1 fL (80.0-94.0); MEAN PLATELET VOLUME 10.9 fL (7.4-11.4); MONOCYTES % (AUTO) 10.9 %; NEUTROPHILS # (AUTO) 4.7 10^3/uL (1.5-6.6); NEUTROPHILS % (AUTO) 49.7 %; PLT - PLATELET COUNT 421 10^3/uL (130-450); RED BLOOD COUNT 4.92 10^6/uL (4.70-6.10); RED CELL DISTRIBUTION WIDTH 14.1 % (12.0-15.0); WHITE BLOOD COUNT 9.4 x10^3/uL (4.8-10.8)
[2021-06-30 16:08] LABS: ALBUMIN 4.3 g/dL (3.2-5.5); ALBUMIN/GLOBULIN RATIO 1.5 (1.0-2.2); ALKALINE PHOSPHATASE 51 IU/L (42-121); ALT ALANINE AMINOTRANSFERASE 14 IU/L (10-60); AST ASPARTATE AMINOTRANSFERASE 21 IU/L (10-42); BILIRUBIN,TOTAL 0.3 mg/dL (0.2-1.0); BUN - BLOOD UREA NITROGEN 17 mg/dL (6-20); CALCIUM 9.7 mg/dL (8.5-10.3); CARBON DIOXIDE - CO2 22 mmol/L (21-32); CHLORIDE 104 mmol/L (101-111); CHOL/HDL RATIO 2.5 (<5.0); CHOLESTEROL 96 mg/dL; CREATININE 0.8 mg/dL (0.6-1.2); GFR - MDRD 95 (>89); GLUCOSE 127 mg/dL (70-100); HDL CHOLESTEROL 39 mg/dL; LDL CHOLESTEROL,CALCULATED 29 mg/dL; LDL/HDL RATIO 0.7 (<3.6); POTASSIUM 4.2 mmol/L (3.5-5.0); SODIUM 135 mmol/L (135-145); TOTAL PROTEIN 7.2 g/dL (6.7-8.2); TRIGLYCERIDES 139 mg/dL; VLDL CHOLESTEROL 28 mg/dL
== END 2021-06-30 09:34 | disposition home or self-care (01) ==
LOC: LAB.S 09:33
PROVIDERS: ATTEND Internal Medicine
DX: I10 Essential (primary) hypertension (principal); Z12.5 Encounter for screening for malignant neoplasm of prostate
CPT/HCPCS: 36415; 80053; 80061; 85025; G0103; 83721; 84153

== ENCOUNTER 2022-02-19 15:21 | Outpatient (CLI) | payer MEDICARE, OTHER ==
--- NOTE | 2022-02-19 16:37 | XRAY Report ---
PROCEDURE: Cervical Spine w/Flex/Ext INDICATIONS: Neck pain TECHNIQUE: 7 views of the cervical spine were acquired. COMPARISON: None. FINDINGS: Bones: No fractures or dislocations to the C7-T1 level. No suspicious bony lesions. Mild cervical straightening is present. There is moderate to severe disc space narrowing at C5-6, C6-7. Multilevel anterior osteophytes are present most notable at C4 and C5. Multilevel moderate uncovertebral arthrop athy is present. There is mildly decreased range of motion between flexion and extension, with preser alfa normal bony alignment. There is moderate to severe foraminal narrowing bilaterally from C4-5 thro ugh C6-7. Soft tissues: Prevertebral soft tissues are normal in thickness. IMPRESSION: Multilevel degenerative changes as above. Reviewed by: Jacque Cody MD on 02/19/2022 4:36 PM PDT Approved by: Jacque Cody MD on 02/19/2022 4:36 PM PDT Station ID: [id number]
--- NOTE | 2022-02-19 16:51 | XRAY Report ---
PROCEDURE: Shoulder 3 View LT INDICATIONS: LEFT SHOULDER PAIN TECHNIQUE: 3 views of the shoulder were acquired. COMPARISON: None. FINDINGS: Bones: No acute fractures or dislocations. No suspicious bony lesions. Visualized ribs appear inta ct. Moderate degenerative changes are seen in the acromioclavicular joint. There are mild to moderat e glenohumeral degenerative changes are partially obscured by pacemaker leads. Soft tissues: A cardi ac pacemaker is seen with pulse generator in the left chest. No suspicious soft tissue calcifications . IMPRESSION: Moderate acromioclavicular osteoarthrosis and mild to moderate glenohumeral osteoarthros is. No acute osseous abnormality. If symptoms persist or there is continued clinical concern, further evaluation with CT arthrogram may be helpful. Reviewed by: Jonathan Payne MD on 02/19/2022 4:49 PM PDT Approved by: Jonathan Payne MD on 02/19/2022 4:49 PM PDT Station ID: [id number]
== END 2022-02-19 15:22 | disposition home or self-care (01) ==
LOC: DI.S 15:21
PROVIDERS: ATTEND Registered Nurse
DX: M47.812 Spondylosis without myelopathy or radiculopathy, cervical region (principal); M48.02 Spinal stenosis, cervical region; M19.012 Primary osteoarthritis, left shoulder

== ENCOUNTER 2022-08-16 11:35 | Outpatient (CLI) | payer MEDICARE ==
--- NOTE | 2022-08-16 15:07 | XRAY Report ---
PROCEDURE: Ribs w/PA Chest RT INDICATIONS: RIB PAIN,RIGHT SIDED TECHNIQUE: 3 views of the right ribs were acquired, along with a single view chest. COMPARISON: CT chest 07/17/2020, chest x-ray 06/13/2020 FINDINGS: Surgical changes and devices: Pacemaker. Bones and chest wall: No fractures or dislocations. No suspicious bony lesions. Overlying soft tis sues appear unremarkable. Lungs and pleura: There is blunting of the left costophrenic angle.. Mediastinum: Mediastinal contours appear normal. Heart size is normal. IMPRESSION: No visualized acute fracture or dislocation. However, occult injury cannot be excluded. Recommend patrice rt interval imaging follow-up in 7-10 days as clinically indicated for additional evaluation. Minimal left effusion. Reviewed by: Jacque Cody MD on 08/16/2022 3:06 PM PST Approved by: Jacque Cody MD on 08/16/2022 3:06 PM PST Station ID: [id number]
== END 2022-08-16 11:36 | disposition home or self-care (01) ==
LOC: DI.S 11:35
PROVIDERS: ATTEND Registered Nurse
DX: R07.81 Pleurodynia (principal)

== ENCOUNTER 2022-09-02 13:08 | Outpatient (CLI) | payer MEDICARE ==
--- NOTE | 2022-09-02 20:06 | CT Report ---
PROCEDURE: CHEST WO INDICATIONS: LEFT CHEST PAIN TECHNIQUE: Noncontrast 1mm axial images were acquired from the pulmonary apices to the posterior costophrenic an gles. Axial 5 mm soft tissue kernel reconstructions were performed as well as 8 mm axial MIP and cor onal and sagittal 5 mm reformations. For radiation dose reduction, the following was used: automate d exposure control, adjustment of mA and/or kV according to patient size. COMPARISON: Chest radiograph dated 08/16/[address] dated 07/17/2020 FINDINGS: Image quality: Excellent. Lungs and pleura: No acute air space opacities. Stable lobular nodule in the central right upper lobe measuring 1.2 x 1.0 cm in the axial plane (imag e 134/series 4). Stable partially calcified pulmonary nodule in the right lower lobe measuring 2 mm i n size (image 189/series 4). No new suspicious nodule. No suspicious pulmonary mass. Redemonstration of bibasilar atelectasis versus scarring. No pleural effusions or pneumothorax. Central and peripheral airways are patent and normal in caliber. Mediastinum: Heart size is normal. Coronary atherosclerosis. Small pericardial effusion as before. This is likely physiologic in etiology. No mediastinal adenopathy by size criteria. No hilar adenopathy. Thoracic aorta and central pulmonary arteries are normal in size. Atherosclerotic calcification of th e thoracic aorta are again noted. Esophagus is normal in caliber. No hiatal hernia. Bones and chest wall: No suspicious bony lesions. No acute vertebral body compression fractures. There are nondisplaced, healing subacute fractures in volving the posteromedial right 10th and 11th ribs. Early callus formation noted adjacent to the frac ture. Chronic healed rib fracture deformities involving the posterior left third through sixth ribs. Left-sided cardiac pacer device is in place. No axillary or supraclavicular adenopathy by size criteria. Thyroid is unremarkable in appearance. Abdomen: Visualized upper abdominal solid organs appear unremarkable. Visualized portions of josé manuel l in the upper abdomen appear unremarkable. Stable subcentimeter hepatic hypodensities likely represe nting cysts or hemangiomas. IMPRESSION: 1. Healing, subacute nondisplaced fractures involving the posterior medial right 10th and 11th ribs. 2. No acute cardiopulmonary abnormalities. Stable 1.2 x 1.1 cm right upper lobe pulmonary nodule. Sta ble 2 mm right lower lobe nodule. No new or suspicious pulmonary nodules identified. 3. Stable healed rib fracture deformities involving the posterior left third through sixth ribs. 4. Atherosclerosis. CLINICAL RECOMMENDATION STATEMENTS: In patients <35 years with an ITN detected on CT, MRI, or extrathyroidal ultrasound, the Committee re commends further evaluation with dedicated thyroid ultrasound if the nodule is "e1 cm and has no susp icious imaging features, and if the patient has normal life expectancy. In patients "e35 years with an ITN detected on CT, MRI, or extrathyroidal ultrasound, the Committee r ecommends further evaluation with dedicated thyroid ultrasound if the nodule is "e1.5 cm and has no s uspicious imaging features, and if the patient has normal life expectancy. (ACR, 2014) Reviewed by: Tomás Christensen MD on 09/02/2022 8:05 PM PST Approved by: Tomás Christensen MD on 09/02/2022 8:05 PM PST Station ID: [id number]
== END 2022-09-02 13:09 | disposition home or self-care (01) ==
LOC: DI 13:08
PROVIDERS: ATTEND Registered Nurse
DX: S22.43XD Multiple fractures of ribs, bilateral, subsequent encounter for fracture with routine healing (principal); R91.8 Other nonspecific abnormal finding of lung field; I25.10 Atherosclerotic heart disease of native coronary artery without angina pectoris

== ENCOUNTER 2022-11-16 09:15 | Outpatient (CLI) | payer MEDICARE ==
[2022-11-16 15:20] LABS: BUN - BLOOD UREA NITROGEN 16 mg/dL (6-20); CALCIUM 9.5 mg/dL (8.5-10.3); CARBON DIOXIDE - CO2 27 mmol/L (21-32); CHLORIDE 105 mmol/L (101-111); CHOL/HDL RATIO 5.4 (<5.0); CHOLESTEROL 195 mg/dL; CREATININE 0.7 mg/dL (0.6-1.2); GFR - MDRD 110 (>89); GLUCOSE 158 mg/dL (70-100); HDL CHOLESTEROL 36 mg/dL; LDL CHOLESTEROL,CALCULATED 117 mg/dL; LDL/HDL RATIO 3.3 (<3.6); POTASSIUM 4.3 mmol/L (3.5-5.0); SODIUM 136 mmol/L (135-145); TRIGLYCERIDES 208 mg/dL; VLDL CHOLESTEROL 42 mg/dL
== END 2022-11-16 09:16 | disposition home or self-care (01) ==
LOC: LAB.S 09:15
PROVIDERS: ATTEND Internal Medicine Cardiovascular Disease
DX: I49.5 Sick sinus syndrome (principal); I48.0 Paroxysmal atrial fibrillation; Z95.0 Presence of cardiac pacemaker; I10 Essential (primary) hypertension; E78.5 Hyperlipidemia, unspecified
CPT/HCPCS: 36415; 80048; 80061; 83721

== ENCOUNTER 2023-01-20 06:19 | Day surgery (SDC) | payer MEDICARE ==
[2023-01-20] MEDS ORDERED: LACTATED RINGERS 1,000 ML IV ONE ×2 (06:22→11:31)
[2023-01-20] MEDS ORDERED: PROPOFOL 500 MG/50 ML 500 MG/50 ML VIAL ONE ×2 (06:53→11:24)
--- NOTE | 2023-01-20 07:06 | ANESTHESIA ---
Pre-Anesthesia VS, & Labs - Diagnosis hx colon polyps - Procedure colonoscopy Vital Signs: Temp Pulse Resp BP Pulse Ox O2 Flow Rate 36 C L 80 16 167/98 H 96 01/20/23 06:26 01/20/23 06:26 01/20/23 06:26 01/20/23 06:26 01/20/23 06:26 Height: 6 ft Weight (kg): 88 kg Body Mass Index: 26.3 BMI Classification: Overweight - NPO >8 hours - Lab Results Current Lab Results: Laboratory Tests 01/20/23 06:42: POC Whole Bld Glucose 177 H Lab results reviewed: No Home Medications and Allergies Home Medications: Ambulatory Orders Cyclobenzaprine [Flexeril] 1 tab PO BID 01/19/23 Propranolol [Inderal] 1 tab PO DAILY 01/19/23 Rivaroxaban [Xarelto] 1 tab PO DAILY 01/19/23 Rosuvastatin Calcium [Crestor] 1 tab PO DAILY 01/19/23 amLODIPine [Norvasc] 10 mg PO DAILY 01/19/23 buPROPion HCL [Bupropion Xl] 1 tab PO DAILY 01/19/23 metFORMIN [Glucophage] 1 tab PO DAILY 01/19/23 Cyclobenzaprine [Flexeril] 1 tab PO BID 01/19/23 Propranolol [Inderal] 1 tab PO DAILY 01/19/23 Rivaroxaban [Xarelto] 1 tab PO DAILY 01/19/23 Rosuvastatin Calcium [Crestor] 1 tab PO DAILY 01/19/23 amLODIPine [Norvasc] 10 mg PO DAILY 01/19/23 buPROPion HCL [Bupropion Xl] 1 tab PO DAILY 01/19/23 metFORMIN [Glucophage] 1 tab PO DAILY 01/19/23 Allergies/Adverse Reactions: Allergies Allergy/AdvReac Type Severity Reaction Status Date / Time Lysiwbc-CNH-RcY Reductase Allergy Hives Verified 01/19/23 12:23 Inhibitor [Jyaquyi-Agr-Oih Reductase Inhibitor] Sulfa (Sulfonamide AdvReac Severe Agitation Verified 01/19/23 12:23 Antibiotics) Anes History & Medical History - Anesthetic History Anesthesia Complications: reports: No previous complications Family history of Anesthesia Complications: Denies Family history of Malignant Hyperthermia: Denies - Medical History Cardiovascular: reports: Hypertension, High cholesterol, Other (PM 2008ish) Pulmonary: reports: COPD Gastrointestinal: reports: Ulcers, Colon polyps Urinary: reports: Nocturia Musculoskeletal: reports: Osteoarthritis Endocrine/Autoimmune: reports: None Skin: reports: None Smoking Status: Never smoker Psychosocial: reports: Cannabis - Surgical History 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
--- NOTE | 2023-01-20 10:39 | HISTORY & PHYSICAL EXAMINATION ---
Chief Complaint - Chief Complaint Chief Complaint: here for colonoscopy History of Present Illness - History Obtained From Records Reviewed: yes History obtained from: pt Exam Limitations: none - History of Present Illness HPI Comment/Other: history colon polyps and due for surveillance. 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, Colonoscopy, EGD Ortho: reports: Arthroscopic surgery Cardiovascular: reports: Pacemaker HEENT: reports: Cataracts, Tonsil/Adenoidectomy Meds/Allgy - Home Medications Home Medications: Ambulatory Orders Medication Instructions Recorded Confirmed Cyclobenzaprine [Flexeril] 1 tab PO BID 01/19/23 01/19/23 Propranolol [Inderal] 1 tab PO DAILY 01/19/23 01/19/23 Rivaroxaban [Xarelto] 1 tab PO DAILY 01/19/23 01/20/23 Rosuvastatin Calcium [Crestor] 1 tab PO DAILY 01/19/23 01/19/23 amLODIPine [Norvasc] 10 mg PO DAILY 01/19/23 01/19/23 buPROPion HCL [Bupropion Xl] 1 tab PO DAILY 01/19/23 01/19/23 metFORMIN [Glucophage] 1 tab PO DAILY 01/19/23 01/19/23 - Allergies Allergies/Adverse Reactions: Allergies Allergy/AdvReac Type Severity Reaction Status Date / Time Orszbsx-SFH-QdM Reductase Allergy Hives Verified 01/19/23 12:23 Inhibitor [Iwsqtsr-Fzm-Vxw Reductase Inhibitor] Sulfa (Sulfonamide AdvReac Severe Agitation Verified 01/19/23 12:23 Antibiotics) Review of Systems - Other Findings Other Findings: 10 pt ros as above otherwise unremarkable Exam - Vital Signs Vital Signs: Vital Signs x48h Temp Pulse Resp BP Pulse Ox 01/20/23 06:26 36 C L 80 16 167/98 H 96 - Physical Exam General Appearance: positive: No acute distress, Alert Eyes Bilateral: positive: PERRL, EOMI ENT: positive: No signs of dehydration Neck: positive: No JVD, Trachea midline Respiratory: positive: No respiratory distress Cardiovascular: positive: Regular rate & rhythm Abdomen: positive: No distention Neurologic/Psychiatric: positive: Oriented x3 Conclusion/Plan - Problem List (1) History of adenomatous polyp of colon Conclusion/Plan: plan colonoscopy. parq held and consent obtained - Lab Results Lab results reviewed: No
[2023-01-20] MEDS ORDERED: PROPOFOL 500 MG/50 ML 1,000 MG/100 ML VIAL ONE (10:57)
[2023-01-20 11:51] VITALS: BP 120/64
--- NOTE | 2023-01-20 15:33 | ANESTHESIA POST OP EVALUATION ---
Anesthesia Post Eval - Post Anesthesia Eval Vitals: Last Vital Signs Temp 36.5 C 01/20/23 11:31 Pulse 66 01/20/23 11:50 Resp 24 01/20/23 11:50 BP 120/64 01/20/23 11:50 Pulse Ox 95 01/20/23 11:50 O2 Flow Rate CV Function Including HR & BP: Stable Pain Control: Satisfactory Nausea & Vomiting: Negative Mental Status: Baseline Respiratory Status: Airway Patent Hydration Status: Satisfactory Anesthesia Complications: None
== END 2023-01-20 06:20 | disposition home or self-care (01) ==
LOC: SDS 06:19
PROVIDERS: ATTEND Surgery
PROC: 0DBM8ZX Excision of Descending Colon, Via Natural or Artificial Opening Endoscopic, Diagnostic (ICD-10-PCS; 2023-01-20)
PROC: 0DBH8ZX Excision of Cecum, Via Natural or Artificial Opening Endoscopic, Diagnostic (ICD-10-PCS; 2023-01-20)
PROC: 0DBK8ZX Excision of Ascending Colon, Via Natural or Artificial Opening Endoscopic, Diagnostic (ICD-10-PCS; principal; 2023-01-20 07:30)
DX: Z12.11 Encounter for screening for malignant neoplasm of colon (principal); D12.0 Benign neoplasm of cecum; D12.2 Benign neoplasm of ascending colon; D12.4 Benign neoplasm of descending colon; K63.5 Polyp of colon; I10 Essential (primary) hypertension; E78.00 Pure hypercholesterolemia, unspecified; J44.9 Chronic obstructive pulmonary disease, unspecified; Z79.01 Long term (current) use of anticoagulants; Z79.84 Long term (current) use of oral hypoglycemic drugs; Z79.899 Other long term (current) drug therapy; Z95.0 Presence of cardiac pacemaker
CPT/HCPCS: 45380; 45385; J7120

== ENCOUNTER 2023-02-14 08:00 | Outpatient (CLI) | payer MEDICARE ==
--- NOTE | 2023-02-15 11:52 | XRAY Report ---
PROCEDURE: Femur 2V LT INDICATIONS: CONTUSION OF LEFT HIP TECHNIQUE: 2 views of the femur were acquired. COMPARISON: None. FINDINGS: Bones: No fractures or dislocations. No suspicious bony lesions. Soft tissues: No suspicious soft tissue calcifications or masses. IMPRESSION: No visualized acute fracture or dislocation. However, occult injury cannot be excluded. Recommend patrice rt interval imaging follow-up in 7-10 days as clinically indicated for additional evaluation. Reviewed by: Jacque Cody MD on 02/15/2023 11:51 AM PDT Approved by: Jacque Cody MD on 02/15/2023 11:51 AM PDT Station ID: [id number]
--- NOTE | 2023-02-15 11:55 | XRAY Report ---
PROCEDURE: Hip w/Pelvis 2-3V LT INDICATIONS: CONTUSION OF LEFT HIP TECHNIQUE: AP pelvis with lateral view(s) of the left hip(s). COMPARISON: None. FINDINGS: Bones: No fractures or dislocations. No suspicious bony lesions. Moderate bilateral, right greate r than left degenerative hip joint space narrowing. No erosions. Degenerative change is present in th e lower lumbar spine. Soft tissues: No suspicious soft tissue calcifications or masses. IMPRESSION: Moderate bilateral hip arthritic change. Reviewed by: Jaqcue Cody MD on 02/15/2023 11:53 AM PDT Approved by: Jacque Cody MD on 02/15/2023 11:53 AM PDT Station ID: [id number]
== END 2023-02-14 23:59 | disposition home or self-care (01) ==
LOC: DI.S 08:00
PROVIDERS: ATTEND Emergency Medicine
DX: M16.0 Bilateral primary osteoarthritis of hip (principal)

== ENCOUNTER 2023-02-24 08:00 | Outpatient (CLI) | payer MEDICARE ==
--- NOTE | 2023-02-25 09:00 | XRAY Report ---
PROCEDURE: Hip w/Pelvis 2-3V LT INDICATIONS: LEFT HIP PAIN TECHNIQUE: AP pelvis with lateral view(s) of the left hip(s). COMPARISON: None. FINDINGS: Bones: No fractures or dislocations. No suspicious bony lesions. Moderate bilateral, right greater than left degenerative joint space narrowing. Degenerative changes of the lumbar spine. Soft tissues: No suspicious soft tissue calcifications or masses. IMPRESSION: Moderate bilateral hip osteoarthritic changes. No acute fractures. Reviewed by: Edson Carrillo MD on 02/25/2023 8:59 AM PDT Approved by: Edson Carrillo MD on 02/25/2023 8:59 AM PDT Station ID: [id number]
== END 2023-02-24 23:59 | disposition home or self-care (01) ==
LOC: DI.S 08:00
PROVIDERS: ATTEND Emergency Medicine
DX: M16.0 Bilateral primary osteoarthritis of hip (principal)

== ENCOUNTER 2023-03-03 10:30 | Outpatient (CLI) | payer MEDICARE ==
--- NOTE | 2023-03-03 14:20 | CT Report ---
PROCEDURE: PELVIS WO INDICATIONS: PELVIC FX TECHNIQUE: Noncontrast 3 mm axial sections acquired through the bony pelvis, with coronal and sagittal reformatt ing. For radiation dose reduction, the following was used: automated exposure control, adjustment of mA and/or kV according to patient size. COMPARISON: Pelvic radiographs 02/24/2023 FINDINGS: Image quality: Excellent. Bones: No acute osseous fracture or dislocation. Mild to moderate degenerative changes are seen in t he hips bilaterally with subchondral cystic changes and marginal osteophyte formation. Moderate degen erative changes are seen in the bilateral sacroiliac joints and included lumbar spine. No suspicious osseous lesion. Soft tissues: No focal soft tissue edema or hematoma. No significant hip effusion. No presacral flui d. The musculature surrounding the hips is normal in bulk. The articular cartilages, ligaments, and t endons are not well evaluated with standard CT. No acute normality is seen in the included portions o f the pelvis. IMPRESSION: 1.No acute osseous fracture. 2.Moderate degenerative changes in the hips, sacroiliac joints, and lumbar spine. Reviewed by: Jonathan Payne MD on 03/03/2023 2:18 PM PDT Approved by: Jonathan Payne MD on 03/03/2023 2:18 PM PDT Station ID: [id number]
== END 2023-03-03 10:31 | disposition home or self-care (01) ==
LOC: DI 10:30
PROVIDERS: ATTEND Emergency Medicine
DX: M16.0 Bilateral primary osteoarthritis of hip (principal); M47.898 Other spondylosis, sacral and sacrococcygeal region; M47.816 Spondylosis without myelopathy or radiculopathy, lumbar region

== ENCOUNTER 2023-05-11 09:24 | Outpatient (CLI) | payer MEDICARE ==
[2023-05-11 15:15] LABS: BASOPHILS # (AUTO) 0.1 10^3/uL (0.0-0.1); EOSINOPHILS # (AUTO) 0.2 10^3/uL (0.0-0.7); EOSINOPHILS % (AUTO) 1.9 %; HCT - HEMATOCRIT 43.9 % (42.0-52.0); HGB - HEMOGLOBIN 14.5 g/dL (14.0-18.0); LYMPHOCYTES # (AUTO) 3.6 10^3/uL (1.5-3.5); LYMPHOCYTES % (AUTO) 36.2 %; MEAN CORPUSCULAR VOLUME 93.8 fL (80.0-94.0); MEAN PLATELET VOLUME 10.5 fL (7.4-11.4); MONOCYTES # (AUTO) 1.1 10^3/uL (0.0-1.0); MONOCYTES % (AUTO) 11.2 %; NEUTROPHILS # (AUTO) 4.8 10^3/uL (1.5-6.6); NEUTROPHILS % (AUTO) 49.4 %; PLT - PLATELET COUNT 402 10^3/uL (130-450); RED BLOOD COUNT 4.68 10^6/uL (4.70-6.10); RED CELL DISTRIBUTION WIDTH 14.1 % (12.0-15.0); WHITE BLOOD COUNT 9.8 x10^3/uL (4.8-10.8)
[2023-05-11 16:01] LABS: CALCIUM 9.9 mg/dL (8.5-10.3); CREATININE 0.8 mg/dL (0.6-1.3); POTASSIUM 4.1 mmol/L (3.5-4.5)
== END 2023-05-11 09:25 | disposition home or self-care (01) ==
LOC: LAB.S 09:24
PROVIDERS: ATTEND Emergency Medicine
DX: S70.02XA Contusion of left hip, initial encounter (principal); Z79.01 Long term (current) use of anticoagulants
CPT/HCPCS: 36415; 80048; 85025

== ENCOUNTER 2023-08-09 09:59 | Outpatient (CLI) | payer MEDICARE ==
[2023-08-09 14:54] LABS: HCT - HEMATOCRIT 45.2 % (42.0-52.0); HGB - HEMOGLOBIN 14.5 g/dL (14.0-18.0); MEAN CORPUSCULAR HEMOGLOBIN 30.6 pg (27.0-31.0); MEAN CORPUSCULAR HGB CONC 32.1 g/dL (32.0-36.0); MEAN CORPUSCULAR VOLUME 95.4 fL (80.0-94.0); MEAN PLATELET VOLUME 10.4 fL (7.4-11.4); RED BLOOD COUNT 4.74 10^6/uL (4.70-6.10); RED CELL DISTRIBUTION WIDTH 13.2 % (12.0-15.0); WHITE BLOOD COUNT 11.1 x10^3/uL (4.8-10.8)
[2023-08-09 16:00] LABS: ALBUMIN 4.4 g/dL (3.2-5.5); ALBUMIN/GLOBULIN RATIO 1.5 (1.0-2.2); ALKALINE PHOSPHATASE 55 IU/L (42-121); ALT ALANINE AMINOTRANSFERASE 14 IU/L (10-60); AST ASPARTATE AMINOTRANSFERASE 18 IU/L (10-42); BILIRUBIN,TOTAL 0.3 mg/dL (0.2-1.0); BUN - BLOOD UREA NITROGEN 10 mg/dL (6-20); CALCIUM 10.1 mg/dL (8.5-10.3); CARBON DIOXIDE - CO2 27 mmol/L (21-32); CHLORIDE 103 mmol/L (101-111); CHOL/HDL RATIO 2.7 (<5.0); CHOLESTEROL 109 mg/dL; CREATININE 0.8 mg/dL (0.6-1.3); GFR - MDRD 94 (>89); GLUCOSE 158 mg/dL (74-104); HDL CHOLESTEROL 40 mg/dL; LDL CHOLESTEROL,CALCULATED 37 mg/dL; LDL/HDL RATIO 0.9 (<3.6); POTASSIUM 4.5 mmol/L (3.5-4.5); SODIUM 136 mmol/L (135-145); TOTAL PROTEIN 7.4 g/dL (6.4-8.9); TRIGLYCERIDES 160 mg/dL (48-352); VLDL CHOLESTEROL 32 mg/dL
== END 2023-08-09 10:00 | disposition home or self-care (01) ==
LOC: LAB.S 09:59
PROVIDERS: ATTEND Nurse Practitioner
DX: I10 Essential (primary) hypertension (principal); E78.5 Hyperlipidemia, unspecified; Z95.0 Presence of cardiac pacemaker
CPT/HCPCS: 36415; 80053; 80061; 83721; 85025; 85027

== ENCOUNTER 2023-11-16 09:51 | Outpatient (CLI) | payer MEDICARE ==
[2023-11-16 15:15] LABS: ESTIMATED AVERAGE GLUCOSE 146 mg/dL (70-100); HEMOGLOBIN A1c% 6.7 % (4.27-6.07)
[2023-11-16 15:16] LABS: CALCIUM 10.4 mg/dL (8.5-10.3); CREATININE 0.9 mg/dL (0.6-1.3); POTASSIUM 4.3 mmol/L (3.5-4.5)
== END 2023-11-16 09:52 | disposition home or self-care (01) ==
LOC: LAB.S 09:51
PROVIDERS: ATTEND Registered Nurse
DX: E11.9 Type 2 diabetes mellitus without complications (principal)
CPT/HCPCS: 36415; 80048; 83036

== ENCOUNTER 2023-11-22 11:36 | Outpatient (CLI) | payer MEDICARE ==
[2023-11-22 15:53] LABS: CALCIUM 10.6 mg/dL (8.5-10.3); CREATININE 0.9 mg/dL (0.6-1.3); POTASSIUM 4.1 mmol/L (3.5-4.5)
[2023-11-22 20:38] LABS: ESTIMATED AVERAGE GLUCOSE 146 mg/dL (70-100); HEMOGLOBIN A1c% 6.7 % (4.27-6.07)
== END 2023-11-22 11:37 | disposition home or self-care (01) ==
LOC: LAB.S 11:36
PROVIDERS: ATTEND Registered Nurse
DX: E11.9 Type 2 diabetes mellitus without complications (principal); Z12.5 Encounter for screening for malignant neoplasm of prostate
CPT/HCPCS: 36415; 80048; 83036; G0103; 84153